=== PATIENT | male | born 1970 | race Caucasian/White ===

== ENCOUNTER 2018-05-10 18:52 | Emergency (ER) | payer MEDICAID ==
[2018-05-10 19:05] VITALS: BP 121/76; PULSE 64; RESP 18; TEMP 98.6; O2SAT 97
--- NOTE | 2018-05-10 19:46 | C.PDOC ---
History Of Present Illness Pt presents to ER with c/o of swelling to right side of neck since this morning with pain on swelling and discomfort to right side of tongue. Pt denies fever, URI sx, headache, toothache, no past recent dental infections. 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 <Donna Gonzalez - Last Filed: 05/10/18 19:42> History Per: Patient History/Exam Limitations: no limitations Onset/Duration Of Symptoms: Days (1) Quality Of Symptoms: Painful, Swollen <Donna Gonzalez - Last Filed: 05/10/18 19:42> <Madai Kate - Last Filed: 05/10/18 20:11> Time Seen by Provider: 05/10/18 19:18 Chief Complaint (Nursing): Abnormal Skin Integrity Past Medical History Vital Signs: Last Vital Signs Temp 98.6 F 05/10/18 19:03 Pulse 64 05/10/18 19:03 Resp 18 05/10/18 19:03 BP 121/76 05/10/18 19:03 Pulse Ox 97 05/10/18 19:03 - Medical History PMH: No Chronic Diseases Family History: States: Unknown Family Hx - Social History Hx Alcohol Use: Yes Hx Substance Use: No - Immunization History Hx Tetanus Toxoid Vaccination: No Hx Influenza Vaccination: No Hx Pneumococcal Vaccination: No <Donna Gonzalez - Last Filed: 05/10/18 19:42> Vital Signs: Last Vital Signs Temp 98.6 F 05/10/18 19:03 Pulse 64 05/10/18 19:03 Resp 18 05/10/18 19:03 BP 121/76 05/10/18 19:03 Pulse Ox 97 05/10/18 20:06 <Madai Kate - Last Filed: 05/10/18 20:11> Review Of Systems Constitutional: Positive for: Fever Respiratory: Negative for: Cough, Shortness of Breath Neurological: Negative for: Headache, Dizziness <Donna Gonzalez - Last Filed: 05/10/18 19:42> Physical Exam - Physical Exam Appears: Well, Non-toxic Skin: Normal Color Head: No Swelling (facial) Eye(s): bilateral: Normal Inspection, PERRL Oral Mucosa: Moist, No Drooling, No Other (swelling to floor of mouth ,no elevation of tongue) Tongue: Swelling (minimal right sided tongue, remainder of tongue normal), No Erythema Teeth: No Tender To Palpation, Other (poor hygiene) Gingiva: Normal Appearing, No Erythema, No Swelling, No Tender, No Abscess Throat: Normal, No Erythema, No Drooling Neck: Normal, Supple, Other (swelling to right submandibular area) Lymphatic: Adenopathy (right submandibular) Cardiovascular: Rhythm Regular Respiratory: Normal Breath Sounds Neurological/Psych: Oriented x3, Normal Speech <Donna Gonzalez - Last Filed: 05/10/18 19:42> ED Course And Treatment O2 Sat by Pulse Oximetry: 97 Pulse Ox Interpretation: Normal Progress Note: Pt was also examined by Dr Benton at bedside, advised that a soft tissue neck CT with contrast was needed to r/o mass,abscess. Pt refused to have bloodwork or CT done prefers to S/O AMA. Pt was educated about the risks of not having this diagnostic studies which may lead to not diagnosing early mass/ CA or abscess leading to delayes treatment, respiratory distress or arrest. <Donna Gonzalez - Last Filed: 05/10/18 19:42> Supervising Attending Note - Supervising Attending Note The Documented history was done by the: Physician Communications Supervisor The documented physical exam was done by the: Physician Communications Supervisor The documented procedures were done by the: Physician Communications Supervisor - Attestation: I have personally seen and examined this patient.: Yes I have fully participated in the care of the patient.: Yes I have reviewed all pertinent clinical information, including history, physical exam and plan: Yes - Notes: Notes:: NEW ONSET R LOWER FACIAL SWELL X 2 DAYS. CONSTANT LOCALIZED. PAIN WORSE W SWALLOWING. DENIES DENTAL PAIN, DIFF SWALLOWING OR BREATHING. +HO SMOKING. DENIES OTHER ASSOC SX. EXAM ABOVE. 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 PT ADVISED CT WHICH REQUIRES LABS AND IV CONTRAST. PT REFUSING NEEDLES AND BLOOD DRAW. REQUESTING ABX, ADVISED CANNOT MEDICATE WITHOUT KNOWING UNDERLYING CAUSE. REFUSES FURTHER EVALUATION. PT AND BROKERAGE MANAGER EXPRESS VERBAL UNDERSTANDING INCLUDING POSSIBILITY OF MALIGNANCY GIVEN RISK FACTOR. <Madai Kate - Last Filed: 05/10/18 20:11> Disposition Counseled Patient/Family Regarding: Diagnosis - Disposition Disposition Time: 20:02 <Donna Gonzalez - Last Filed: 05/10/18 19:42> <Madai Kate - Last Filed: 05/10/18 20:11> - Disposition Referrals: Brandin Holcomb MD [Staff Provider] - Disposition: AGAINST MEDICAL ADVICE Condition: FAIR Forms: [facility] (Georgian) - Clinical Impression Clinical Impression: Neck swelling
== END 2018-05-10 19:50 | disposition left against medical advice (07) ==
LOC: C.ER 18:52
DX: R22.1 Localized swelling, mass and lump, neck (principal)